=== PATIENT | female | born 1975 | race Hispanic/Latino ===

== ENCOUNTER 2024-03-07 14:14 | Outpatient (CLI) | payer OTHER | END 2024-03-07 14:15 | disposition home or self-care (01) | LOC: CSHULT 14:14 | PROVIDERS: ATTEND Nurse Practitioner Family | DX: R01.1 Cardiac murmur, unspecified (principal); R93.1 Abnormal findings on diagnostic imaging of heart and coronary circulation | CPT/HCPCS: 93306 ==